=== PATIENT | male | born 1990 | race Caucasian/White ===

== ENCOUNTER 2017-11-06 10:45 | Emergency (ER) | payer SELFPAY ==
[2017-11-06] MEDS: IBUPROFEN 600 MG TAB PO (12:40)
[2017-11-06] MEDS: traMADol 50 MG TAB PO (12:40)
== END 2017-11-06 13:11 | disposition home or self-care (01) ==
LOC: FTE 10:45
DX: K08.89 Other specified disorders of teeth and supporting structures (principal); F17.210 Nicotine dependence, cigarettes, uncomplicated
CPT/HCPCS: 99284